=== PATIENT | male | born 1980 | race Caucasian/White ===

== ENCOUNTER 2017-03-03 19:44 | Emergency (ER) | payer OTHER ==
[~2017-03-03] VITALS: Ht 170.2 cm; Wt 68.0 kg
[~2017-03-03 19:44] MED LIST: AMOXICILLIN500 MG ORAL; MOTRIN600 MG ORAL; NKM; NORCO 5-325 TA1 EACH ORAL
[2017-03-03 20:14] VITALS: BP 136/91
[2017-03-03] MEDS ORDERED: COLACE100 MG ORAL (20:35)
[2017-03-03] MEDS ORDERED: LIDOCAINE-HC 3-07 GM RC (20:35)
[2017-03-03] MEDS ORDERED: MIRALAX119 GM PO (20:35)
[2017-03-03 20:41] VITALS: BP 136/91
--- NOTE | 2017-03-03 21:58 | Emergency Room Report ---
History of Present Illness General Chief Complaint: Abdominal Pain Source: Patient Present Illness HPI The patient is a 36-year-old male presenting for abdominal pain, pain with defecation, and bright red blood on toilet paper. The patient states that this began one week ago. He denies constipation but does admit to pain with defecation which began before the other symptoms. Pain is now 2/10 sharp sensation to the rectum with defecating and wiping. He states that this area has become very sensitive. He states that he has not had hemorrhoids in the past. He denies any other symptoms including nausea, vomiting, fever, chills, back pain, melena, hematochezia Allergies: Coded Allergies: No Known Allergies (Unverified , 01/26/13) Patient History Past Medical History: see triage record Pertinent Family History: none Reviewed Nursing Documentation: PMH: Agreed, PSxH: Agreed Nursing Documentation-PMH Hx Gastrointestinal Problems: Yes - KIDNEY STONE Review of Systems All Other Systems: negative except mentioned in HPI Physical Exam Vital Signs Date Time Temp Pulse Resp B/P (MAP) Pulse Ox O2 Delivery O2 Flow Rate FiO2 03/03/17 19:49 98.1 88 16 136/91 96 Room Air Sp02 EP Interpretation: reviewed, normal General Appearance: no apparent distress, alert, GCS 15, non-toxic Head: normocephalic, atraumatic Eyes: bilateral eye normal inspection, bilateral eye PERRL ENT: hearing grossly normal, normal pharynx, no angioedema, normal voice Neck: full range of motion, supple/symm/no masses Gastrointestinal: normal bowel sounds, non tender, soft, non-distended, no guarding, no rebound Rectal: normal rectal tone, hemorrhoids - small internal, other - external davon -anal skin is erythematous Genitourinary: normal inspection, no CVA tenderness Musculoskeletal: back normal, gait/station normal, normal range of motion, non- tender Neurologic: alert, oriented x3, responsive, motor strength/tone normal, sensory intact, speech normal Psychiatric: judgement/insight normal, memory normal, mood/affect normal, no suicidal/homicidal ideation Skin: normal color, warm/dry, well hydrated Lymphatic: no adenopathy Medical Decision Making PA Attestation Dr. Henderson is my supervising physician. Patient management was discussed with my supervising physician Diagnostic Impression: Primary Impression: Hemorrhoid Qualified Codes: K64.9 - Unspecified hemorrhoids ER Course The patient is a 36-year-old male presenting for likely hemorrhoids Differential diagnoses considered include but not limited to internal hemorrhoid , external hemorrhoid, cellulitis, abscess, rectal prolapse, gastroenteritis, among others Physical exam: No apparent distress Abdomen is soft and nontender Rectal exam: Normal rectal tone. No external mass. There is external erythema and tenderness. No edema. No increased temperature. There is a small, soft internal hemorrhoid noted. Otherwise unremarkable The patient is given prescription for MiraLAX, Colace, and topical cream. He will follow up with primary doctor. He is given instructions for sitz bath. He is told to return to emergency Department if bleeding continues or worsens, pain continues or worsens, or for any reasons. Last Vital Signs Date Time Temp Pulse Resp B/P (MAP) Pulse Ox O2 Delivery O2 Flow Rate FiO2 03/03/17 20:41 98.1 16 136/91 96 Room Air 03/03/17 19:49 88 Status: improved Disposition: HOME, SELF-CARE Condition: Improved Scripts Lidocaine/Hydrocortisone AC (Lidocaine-Hc 3-0.5% Cream) 7 Gm Cream..g. 1 APPLIC RC BID, #7 GM Prov: CINDI JOHNSON 03/03/17 Docusate Sodium* (COLACE*) 100 Mg Capsule 100 MG ORAL DAILY, #10 CAP Prov: TERZIANJOSEY P.A. 03/03/17 Polyethylene Glycol 3350 (MIRALAX) 119 Gm Powder 17 GM PO DAILY, #119 GM Prov: CINDI JOHNSON P.A. 03/03/17 Referrals: NON PHYSICIAN (PCP) Patient Instructions: How to Take a Sitz Bath, Hemorrhoids Additional Instructions: I discussed my findings with the patient. All questions and concerns have been answered. Treatment and medication compliance have been addressed. I advised the patient that they need to follow up with PMD in 3-5 days. Return to ED if symptoms worsen, new symptoms arise, or if needed for any reason. Patient verbalized understanding of discharge instructions. CINDI JOHNSON Mar 03, 2017 21:58
== END 2017-03-03 20:35 | disposition home or self-care (01) ==
LOC: EMR 20:19
DX: K64.9 Unspecified hemorrhoids (principal)
CPT/HCPCS: 99284

== ENCOUNTER 2017-08-10 21:24 | Emergency (ER) | payer BC, OTHER ==
[~2017-08-10] VITALS: Ht 170.2 cm; Wt 72.6 kg
[~2017-08-10 21:24] MED LIST changes: +COLACE100 MG ORAL; +LIDOCAINE-HC 3-07 GM RC; +MIRALAX119 GM PO
[2017-08-10] MEDS ORDERED: Tetanus/Diptheria/Pertussis Vaccine 0.5ml Syr IM ONE (22:00)
[2017-08-10] MEDS ORDERED: BACITRACIN ZIN1 EACH TOPIC (22:03)
--- NOTE | 2017-08-10 22:05 | Emergency Room Report ---
History of Present Illness General Chief Complaint: Laceration Source: Patient Present Illness HPI Patient is a 36-year-old male who presented after increased pain to his right index finger. Patient had reportedly pulled a wire and subsequently cut his finger. He denied recent tetanus vaccine. 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 He denies any foreign body sensation. He denies any numbness distally. Skin was avulsed. Allergies: Coded Allergies: No Known Allergies (Unverified , 01/26/13) Patient History Past Medical History: see triage record Reviewed Nursing Documentation: PMH: Agreed, PSxH: Agreed Nursing Documentation-PMH Hx Gastrointestinal Problems: Yes - KIDNEY STONE Review of Systems All Other Systems: negative except mentioned in HPI Physical Exam Vital Signs Date Time Temp Pulse Resp B/P (MAP) Pulse Ox O2 Delivery O2 Flow Rate FiO2 08/10/17 21:37 98.8 112 18 132/89 99 Room Air 98.8 General Appearance: well appearing, no apparent distress, alert, GCS 15 Head: normocephalic, atraumatic ENT: hearing grossly normal, normal voice Neck: full range of motion, supple Respiratory: no respiratory distress, speaking full sentences Cardiovascular #1: regular rate, rhythm, no edema Musculoskeletal: normal inspection, back normal, no calf tenderness Neurologic: normal inspection, alert, oriented x3, normal gait Psychiatric: mood/affect normal Skin: no rash, other - small skin avulsion to right index finger pad Medical Decision Making Diagnostic Impression: Primary Impression: Avulsion of skin of finger ER Course Patient presented for laceration. Differential diagnoses included foreign body , nerve injury, arterial injury among others. Patient has a benign exam and does not appear to require any further imaging or laboratory testing at this time. The patient is advised to have the wound rechecked in 3 days. The patient was given tetanus vaccine. Was not amenable to suturing.The patient is advised to return for any concerns. Last Vital Signs Date Time Temp Pulse Resp B/P (MAP) Pulse Ox O2 Delivery O2 Flow Rate FiO2 08/10/17 21:37 98.8 112 18 132/89 99 Room Air 98.8 Status: improved Disposition: HOME, SELF-CARE Condition: Stable Scripts Bacitracin Zinc* (BACITRACIN ZINC*) 1 Each Packet 1 APPLIC TOPIC THREE TIMES A DAY, #14 PACKET Prov: Omar Anderson 08/10/17 Departure Forms: Return to Work Patient Instructions: Nonsutured Laceration Care Omar Anderson Aug 10, 2017 22:05
[2017-08-10] MEDS ORDERED: Surgicel 4in x 8in TOPIC ONE (22:15)
[2017-08-10 22:30] VITALS: BP 127/76
== END 2017-08-10 22:30 | disposition home or self-care (01) ==
LOC: EMR 22:00
DX: S61.210A Laceration without foreign body of right index finger without damage to nail, initial encounter (principal); W45.8XXA Other foreign body or object entering through skin, initial encounter; Y92.9 Unspecified place or not applicable; Z23 Encounter for immunization
CPT/HCPCS: 90471; 90715; 99283

== ENCOUNTER 2018-07-15 18:49 | Emergency (ER) | payer BC ==
[~2018-07-15] VITALS: Ht 170.2 cm; Wt 68.0 kg
[~2018-07-15 18:49] MED LIST changes: +BACITRACIN ZIN1 EACH TOPIC
[2018-07-15] MEDS ORDERED: EFFEXOR XR150 MG ORAL (18:55)
[2018-07-15] MEDS ORDERED: BUPROPION XL300 MG ORAL (18:55)
[2018-07-15 18:56] VITALS: BP 134/93
[2018-07-15] MEDS ORDERED: CORTISPORIN EAR10 ML RIGHT EAR (19:11)
[2018-07-15 19:27] VITALS: BP 135/91
--- NOTE | 2018-07-15 21:25 | Emergency Room Report ---
History of Present Illness General Chief Complaint: Earache Source: Medical Record Present Illness HPI The patient is a 37-year-old male presenting for right ear pain for the past one week. Pain described as a 5 out of 10 dull ache and does not radiate. No known provoking or relieving factors. He admits to decreased hearing out of the ear. He has used Q-tips recently. He denies any other symptoms including N , V, F, chills, rash, FIGUEROA, dizziness, cough Allergies: Coded Allergies: No Known Allergies (Unverified , 01/26/13) Patient History Past Medical History: see triage record Pertinent Family History: none Reviewed Nursing Documentation: PMH: Agreed; PSxH: Agreed Nursing Documentation-PMH Past Medical History: No History, Except For Hx Gastrointestinal Problems: Yes - KIDNEY STONE Review of Systems All Other Systems: negative except mentioned in HPI Physical Exam Vital Signs Date Time Temp Pulse Resp B/P (MAP) Pulse Ox O2 Delivery O2 Flow Rate FiO2 07/15/18 18:52 98.2 102 18 134/93 96 Room Air Sp02 EP Interpretation: reviewed, normal General Appearance: no apparent distress, alert, GCS 15, non-toxic Head: normocephalic, atraumatic Eyes: bilateral eye normal inspection, bilateral eye PERRL ENT: no angioedema, normal voice, other - R EAC is erythematous and edematous Neck: full range of motion, supple/symm/no masses Respiratory: chest non-tender, lungs clear, normal breath sounds, speaking full sentences Musculoskeletal: back normal, gait/station normal, normal range of motion Neurologic: alert, oriented x3, responsive Psychiatric: judgement/insight normal, memory normal, mood/affect normal, no suicidal/homicidal ideation Skin: normal color, no rash, warm/dry, well hydrated Lymphatic: no adenopathy Medical Decision Making PA Attestation Dr. Ro is my supervising physician. Patient management was discussed with my supervising physician Diagnostic Impression: Primary Impression: Otitis externa Qualified Codes: H60.501 - Unspecified acute noninfective otitis externa, right ear ER Course The patient is a 37-year-old male presenting for right ear pain for the past one week. Differential diagnosis include but not limited to otitis externa, otitis media, mastoiditis, sinusitis, pharyngitis, among others Physical exam: Vitals within normal limits. No apparent distress. HEENT: R ear external auditory canal is erythematous and edematous. No discharge is noted. Tympanic membrane is intact. No bulging. There is no cervical lymphadenopathy. Otherwise exam is unremarkable The patient will be discharged home with a prescription for Cortisporin and he was told to F/U with PCP Last Vital Signs Date Time Temp Pulse Resp B/P (MAP) Pulse Ox O2 Delivery O2 Flow Rate FiO2 07/15/18 18:56 98.2 99 18 134/93 96 Room Air Status: improved Disposition: HOME, SELF-CARE Condition: Improved Scripts Neomycin/Polymyxin B Sulf/Hc* (CORTISPORIN EAR SOLUTION*) 10 Ml Solution 4 DROP RIGHT EAR QID, #10 ML 0 Refills Prov: CINDI JOHNSON 07/15/18 Referrals: NON PHYSICIAN (PCP) Patient Instructions: Otitis Externa Additional Instructions: I discussed my findings with the patient. All questions and concerns have been answered. Treatment and medication compliance have been addressed. I advised the patient that they need to follow up with PMD in 3-5 days. Return to ED if symptoms worsen, new symptoms arise, or if needed for any reason. Patient verbalized understanding of discharge instructions. CINDI JOHNSON Jul 15, 2018 21:25
== END 2018-07-15 19:27 | disposition home or self-care (01) ==
LOC: EMR 19:10
DX: H60.501 Unspecified acute noninfective otitis externa, right ear (principal); Z87.442 Personal history of urinary calculi
CPT/HCPCS: 99282

== ENCOUNTER 2018-08-15 23:25 | Emergency (ER) | payer BC ==
[~2018-08-15] VITALS: Ht 170.2 cm; Wt 68.0 kg
[~2018-08-15 23:25] MED LIST changes: +BUPROPION XL300 MG ORAL; +CORTISPORIN EAR10 ML RIGHT EAR; +EFFEXOR XR150 MG ORAL
[2018-08-15] MEDS ORDERED: TRAZODONE HCL150 MG ORAL (23:32)
[2018-08-15 23:40] VITALS: BP 145/98
--- NOTE | 2018-08-15 23:40 | NUR ---
ED Nurse Note: pt walked in c/o right ingroin pain, pt states he noticed bump x 3days, redness and tenderness. will cont monitor. no active drainage, closed wound.
[2018-08-16] MEDS ORDERED: IBUPROFEN600 MG ORAL (00:09)
[2018-08-16] MEDS ORDERED: BACTRIM DS TAB1 EAC1 ORAL (00:09)
--- NOTE | 2018-08-16 00:11 | Emergency Room Report ---
History of Present Illness General Chief Complaint: Skin Rash/Abscess Source: Patient Present Illness HPI Is a 37-year-old male with history kidney stone. He presents with chief complaint of painful lump to the right groin area. When there for a few days but worse the last couple days. Getting more swollen. No fever chills but no nausea no vomiting. Pain is 7 out of 10. Worse with palpation. No Drainage. Allergies: Coded Allergies: No Known Allergies (Unverified , 01/26/13) Patient History Past Medical History: see triage record, old chart reviewed Past Surgical History: other Pertinent Family History: none Social History: Denies: smoking Immunizations: other Reviewed Nursing Documentation: PMH: Agreed; PSxH: Agreed Nursing Documentation-PMH Hx Gastrointestinal Problems: Yes - KIDNEY STONE Review of Systems Eye: Denies: eye pain, blurred vision ENT: Denies: ear pain, nose congestion, throat swelling Respiratory: Denies: cough, shortness of breath Cardiovascular: Denies: chest pain, palpitations Gastrointestinal: Denies: abdominal pain, diarrhea, nausea, vomiting Musculoskeletal: Denies: back pain, joint pain Skin: Denies: rash Neurological: Denies: headache, numbness Endocrine: Denies: increased thirst, increased urine Hematologic/Lymphatic: Denies: easy bruising All Other Systems: negative except mentioned in HPI Physical Exam Vital Signs Date Time Temp Pulse Resp B/P (MAP) Pulse Ox O2 Delivery O2 Flow Rate FiO2 08/15/18 23:27 99.0 111 14 145/98 97 Room Air vitals with tachycardia Sp02 EP Interpretation: reviewed, normal General Appearance: well appearing, no apparent distress, alert Head: normocephalic, atraumatic Eyes: bilateral eye PERRL, bilateral eye EOMI ENT: hearing grossly normal, normal pharynx Neck: full range of motion, supple, no meningismus Respiratory: chest non-tender, lungs clear, normal breath sounds Cardiovascular #1: regular rate, rhythm, no murmur Gastrointestinal: normal bowel sounds, non tender, no mass, no organomegaly, no bruit, non-distended Genitourinary: other - Right inguinal area: There is a indurated about 3 cm. 2 cm area of erythema Musculoskeletal: back normal, gait/station normal, normal range of motion Psychiatric: mood/affect normal Skin: warm/dry Procedures Incision and Drainage Incision and Drainage : Consent: Verbal Site: Right groin Blade Size: 11 I & D Procedure: betadine prep, sterile drapes applied Anesthesia: 1% Lidocaine Volume Anesthetic (ccs): 2 Patient Tolerated: Well Complications: None Medical Decision Making Diagnostic Impression: Primary Impression: Abscess of groin, right ER Course Patient with an abscess to the right groin area. No evidence of deep infection. No necrotizing fasciitis. We'll discharge home. Last Vital Signs Date Time Temp Pulse Resp B/P (MAP) Pulse Ox O2 Delivery O2 Flow Rate FiO2 08/15/18 23:27 99.0 111 14 145/98 97 Room Air Status: improved Disposition: HOME, SELF-CARE Condition: Stable Scripts Ibuprofen* (MOTRIN*) 600 Mg Tablet 600 MG ORAL THREE TIMES A DAY, #30 TAB 0 Refills Prov: Horace Ocasio MD 08/16/18 Trimethoprim/Sulfamethoxazole 160/800* (BACTRIM DS TABLET*) 1 Each Tablet 1 TAB ORAL Q12H, #14 TAB 0 Refills Prov: Horace Ocasio MD 08/16/18 Patient Instructions: Abscess Additional Instructions: Follow-up with your Dr. in 2 to 3 days if not better. Return if symptom worsen. Keep area clean. Clean with hydroperoxide first and then antibiotic ointment. Return if worse. Horace Ocasio MD Aug 16, 2018 00:10
--- NOTE | 2018-08-16 00:17 | NUR ---
ED Nurse Note: pt cleared to be d/c per ERMD, dressing and wound care done by ERMD, pt discharge and aftercare instruction w/ prescription provided, pt education done via discussion and handout, pt verbalized understanding and agrees with plan, pt advised to return to ed if sx worsen or new sx develop, pt advised to follow up with pcp, pt ambulatory w/ steady gait, dressing intact, left w/ all belongings.
[2018-08-16 00:18] VITALS: BP 132/87
== END 2018-08-16 00:17 | disposition home or self-care (01) ==
LOC: EMR 23:46
DX: L02.214 Cutaneous abscess of groin (principal); Z87.442 Personal history of urinary calculi
CPT/HCPCS: 99283

== ENCOUNTER 2018-12-28 23:14 | Emergency (ER) | payer BC ==
[~2018-12-28] VITALS: Ht 170.2 cm; Wt 74.8 kg
[~2018-12-28 23:14] MED LIST changes: +BACTRIM DS TAB1 EAC1 ORAL; +IBUPROFEN600 MG ORAL; +TRAZODONE HCL150 MG ORAL
[2018-12-28 23:30] VITALS: BP 141/93
--- NOTE | 2018-12-28 23:30 | NUR ---
ED Nurse Note: Patient walked into ED c/o right upper rib pain, states that he went bowling yesterday and started to feel pain. patient admits to drinking before the activity. patient rates his pain a 7/10 pain. patient is able to move right hand. patient is alert and oriented x4, ambulatory with a steady gait, VSS
--- NOTE | 2018-12-28 23:51 | Emergency Room Report ---
History of Present Illness General Chief Complaint: Pain Source: Patient Present Illness HPI 38-year-old male with no past medical history. Presents with chief complaint of right-sided pain. Onset for the last 4 days. He went bowling over the weekend. Afterward the next day woke up with right-sided pain. Worse with movement. He came in today because he woke up with severe pain with movement. Better now. No nausea no vomiting. No incontinence of bowel or urine. Has been taking ibuprofen. No trauma. Pain is 7 out of 10. Allergies: Coded Allergies: No Known Allergies (Unverified , 01/26/13) Patient History Past Medical History: see triage record, old chart reviewed Past Surgical History: none Pertinent Family History: none Social History: Denies: smoking Immunizations: other Reviewed Nursing Documentation: PMH: Agreed; PSxH: Agreed Nursing Documentation-PMH Past Medical History: No History, Except For Hx Gastrointestinal Problems: Yes - KIDNEY STONE Review of Systems Eye: Denies: eye pain, blurred vision ENT: Denies: ear pain, nose congestion, throat swelling Respiratory: Denies: cough, shortness of breath Cardiovascular: Denies: chest pain, palpitations Gastrointestinal: Denies: abdominal pain, diarrhea, nausea, vomiting Musculoskeletal: Reports: back pain; Denies: joint pain Skin: Denies: rash Neurological: Denies: headache, numbness Endocrine: Denies: increased thirst, increased urine Hematologic/Lymphatic: Denies: easy bruising All Other Systems: negative except mentioned in HPI Physical Exam Vital Signs Date Time Temp Pulse Resp B/P (MAP) Pulse Ox O2 Delivery O2 Flow Rate FiO2 12/28/18 23:23 98.8 101 20 141/93 (109) 92 Room Air Vitals unremarkable Sp02 EP Interpretation: reviewed, normal General Appearance: well appearing, no apparent distress, alert Head: normocephalic, atraumatic Eyes: bilateral eye PERRL, bilateral eye EOMI ENT: hearing grossly normal, normal pharynx Neck: full range of motion, supple, no meningismus Respiratory: chest non-tender, lungs clear, normal breath sounds Cardiovascular #1: regular rate, rhythm, no murmur Gastrointestinal: normal bowel sounds, non tender, no mass, no organomegaly, no bruit, non-distended Musculoskeletal: back normal - Mild tenderness to the right mid back area., gait/station normal, normal range of motion Psychiatric: mood/affect normal Medical Decision Making Diagnostic Impression: Primary Impression: Muscle strain of right upper back Qualified Codes: S29.012A - Strain of muscle and tendon of back wall of thorax , initial encounter ER Course Patient with back strain. No fracture dislocation. Will discharge home. Last Vital Signs Date Time Temp Pulse Resp B/P (MAP) Pulse Ox O2 Delivery O2 Flow Rate FiO2 12/28/18 23:23 98.8 101 20 141/93 (109) 92 Room Air Status: improved Disposition: HOME, SELF-CARE Condition: Stable Scripts Methocarbamol* (ROBAXIN*) 500 Mg Tablet 500 MG PO TID, #21 TAB 0 Refills Prov: Horace Ocasio MD 12/28/18 Hydrocodone/Acetaminophen 5-325* (HYDROCODONE/ACETAMINOPHEN 5-325*) 1 Each Tablet 1 TAB ORAL Q6H PRN for For Pain, #10 TAB 0 Refills Prov: Horace Ocasio MD 12/28/18 Additional Instructions: Follow-up with your doctor in 7 days. Return if symptoms worsen. Horace Ocasio MD Dec 28, 2018 23:51
[2018-12-28] MEDS ORDERED: HYDROCODON-ACE1 EA15 ORAL (23:54)
[2018-12-28] MEDS ORDERED: ROBAXIN500 MG PO (23:54)
[2018-12-28 23:55] VITALS: BP 132/88
--- NOTE | 2018-12-28 23:55 | NUR ---
ER DISCHARGE NOTE: Patient is cleared to be discharged per ERMD, pt is aox4, on room air, with stable vital signs. pt was given dc and prescription instructions, pt was able to verbalize understanding, pt id band removed without complications. pt is able to ambulate with steady gait. pt took all belongings.
== END 2018-12-28 23:55 | disposition home or self-care (01) ==
LOC: EMR 23:25
DX: S29.012A Strain of muscle and tendon of back wall of thorax, initial encounter (principal); Y93.54 Activity, bowling; Y92.219 Unspecified school as the place of occurrence of the external cause; Z87.442 Personal history of urinary calculi
CPT/HCPCS: 99282

== ENCOUNTER 2020-03-05 22:00 | Emergency (ER) | payer BC ==
[~2020-03-05] VITALS: Ht 170.2 cm; Wt 79.4 kg
[~2020-03-05 22:00] MED LIST changes: +HYDROCODON-ACE1 EA15 ORAL; +ROBAXIN500 MG PO
--- NOTE | 2020-03-05 22:12 | NUR ---
ED Nurse Note: pt presents to ED c/o abscess to R thigh x3 days. pt reports that it has gotten worse and more painful since he first noticed it.
[2020-03-05 22:14] VITALS: BP 145/96
[2020-03-05] MEDS ORDERED: NAPROXEN500 M1 ORAL (22:16)
[2020-03-05] MEDS ORDERED: CEPHALEXIN500 MG ORAL (22:16)
[2020-03-05] MEDS ORDERED: BACTRIM DS TAB1 EAC1 ORAL (22:16)
--- NOTE | 2020-03-05 22:16 | Emergency Room Report ---
History of Present Illness General Chief Complaint: Skin Rash/Abscess Source: Patient Present Illness HPI 39-year-old male with no prior medical history presents with complaint of right groin abscess. Duration x2 days. Nonradiating The patient's symptoms were gradual onset, severity was moderate, duration since 2 days. Quality: Dull Past medical history: Denies Past surgical history: Previous thigh incision and drainage Smoking: Denies Alcohol use: Denies Drug use: Denies Review of systems: CONST: No fevers or chills, No night sweats PULMONARY: No productive cough, No shortness of breath CARDIAC: No chest pain, No palpitations GI: No vomiting, No diarrhea , No melena_or_BRBPR : No dysuria, No hematuria, No discharge NEURO: No new_focal_weakness_or_numbness, No confusion, No vision changes 14 point Review of Systems is otherwise negative except per HPI Physical Exam: GENERAL: Awake_alert_ nontoxic, no acute distress Spo2 97% on RA -normal EYES: Extraocular muscles are intact. Conjunctivae clear. Lids without swelling ENT: External nose and ear normal_in_appearance. Oropharynx clear. Head_atraumatic, Moist_oral_mucosa NECK: No JVD. No meningismus. No thyromegaly. Supple. Trachea midline RESP: Normal respiratory effort. Symmetric rise. No stridor. Clear_to_auscultation_No_rales_No_wheezes CARDIAC: Regular rate and regular rhytm. No_significant pedal edema. ABDOMEN: Soft. Nondistended. Nontender_No_rebound_or_guarding. MSK: Normal muscle tone, without rigidity. Extremities without asymmetric deformity or swelling. SKIN: 1cm R inguinal indurated abscess. No fluctuance. Mild erythema localized to the R proximal medial thigh. No palpable crepitus. No fournieres gangrene NEUROLOGIC: Alert, oriented x3. Motor_and_sensation_grossly_intact. No truncal ataxia. Gait_normal Psych: Normal mood and affect, normal judgment and insight - COORDINATION OF CARE Case was discussed with: Patient Medical Decision Making/Plan: DDx: cyst vs abscess vs cellulitis. Patient is well-appearing with stable vital signs. Patient does have low-grade tachycardia, however he usually has tachycardia when he comes to the emergency department based on my chart review. On examination of the right groin region, there is a 1 cm indurated abscess. No fluctuance. Abscess is likely too small/indurated for successful incision and drainage. Normal penile/testicular exam I&D offered, however, patient defers. Opted to treat with dual antibiotics and close follow-up by PMD. Recommend sitz bath and hygiene until symptom resolution. There is no evidence of Robert's gangrene or worsening infection. Patient will follow-up for wound check in 1 to 2 days with PMD Will discharge with Keflex and Bactrim Allergies: Coded Allergies: No Known Allergies (Unverified , 01/26/13) COVID-19 Screening Contact w/high risk pt: No Experienced COVID-19 symptoms?: No COVID-19 Testing performed HAMMER HEATER: No Nursing Documentation-[facility] Past Medical History: No Stated History Hx Gastrointestinal Problems: Yes - KIDNEY STONE Physical Exam Vital Signs Date Time Temp Pulse Resp B/P (MAP) Pulse Ox O2 Delivery O2 Flow Rate FiO2 03/05/20 22:04 97.9 105 18 145/96 (112) 97 Room Air Medical Decision Making Diagnostic Impression: Primary Impression: Abscess Additional Impression: Rash and other nonspecific skin eruption Last Vital Signs Date Time Temp Pulse Resp B/P (MAP) Pulse Ox O2 Delivery O2 Flow Rate FiO2 03/05/20 22:04 97.9 105 18 145/96 (112) 97 Room Air Disposition: HOME, SELF-CARE Admit Decision Time: 22:14 Condition: Stable Scripts Naproxen* (NAPROXEN*) 500 Mg Tablet.dr 500 MG ORAL TWICE A DAY for 7 Days, #14 TAB Prov: Cristina Olson.O. 03/05/20 Cephalexin* (KEFLEX*) 500 Mg Capsule 500 MG ORAL EVERY 12 HOURS, #14 CAP 0 Refills Prov: Cristina Olson.O. 03/05/20 Trimethoprim/Sulfamethoxazole 160/800* (BACTRIM DS TABLET*) 1 Each Tablet 1 TAB ORAL Q12H, #14 TAB 0 Refills Prov: Cristina Olson.O. 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 Do not drink while taking antibiotics. Follow-up with your doctor sooner if your condition requires a more timely clinical reevaluation. Return to the emergency department immediately if you feel that your condition is worsening or if you have any new or concerning symptoms. Review your discharge instructions and take any prescriptions given as instructed. [facility] PROVIDES FREE OR LOW-COST HEALTH SERVICES TO PEOPLE WHO CAN SHOW PROOF THAT THEY LIVE IN [facility]. TO FIND MORE CLINICS PARTNERED WITH [facility] TO PROVIDE SERVICE, PLEASE CALL . Cristina Olson D.O. Mar 05, 2020 22:16
[2020-03-05 22:24] VITALS: BP 145/96
== END 2020-03-05 22:26 | disposition home or self-care (01) ==
LOC: EMR 22:22
DX: L02.214 Cutaneous abscess of groin (principal); R00.0 Tachycardia, unspecified; Z87.442 Personal history of urinary calculi; R21 Rash and other nonspecific skin eruption
CPT/HCPCS: 99282